=== PATIENT | male | born 2000 | race African-American/Black ===

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

== ENCOUNTER 2021-04-06 13:49 | Emergency (ER) | payer MEDICAID ==
[~2021-04-06] VITALS: Ht 182.9 cm; Wt 77.3 kg
[2021-04-06 13:57] VITALS: BP 133/78; Ht 182.9 cm; Wt 77.3 kg
[2021-04-06 14:40] LABS: BILIRUBIN NEGATIVE (NEGATIVE); KETONE TRACE mg/dL (< 1+); NITRITE NEGATIVE (NEGATIVE); PH 5.5 (5.0-8.0); UROBILINOGEN 3 mg/dL (< 2); WHITE CELLS - URINE 26 HPF (0-1)
== END 2021-04-06 14:37 | disposition home or self-care (01) ==
LOC: D.ER 13:49
PROVIDERS: Family Medicine
DX: Z20.2 Contact with and (suspected) exposure to infections with a predominantly sexual mode of transmission (principal)